=== PATIENT | female | born 2005 | race Caucasian/White ===

== ENCOUNTER 2024-02-04 21:31 | Emergency (ER) | payer OTHER ==
[~2024-02-04] VITALS: Ht 162.6 cm; Wt 66.4 kg
[~2024-02-04 21:31] MED LIST: CEPHALEXIN500 M1 PO
[2024-02-04 21:42] VITALS: TEMP 98.2
[2024-02-04] MEDS ORDERED: Cyclobenzaprine 10 MG TAB PO ONE (23:00)
[2024-02-04] MEDS ORDERED: Ketorolac 60 MG/2 ML VIAL IM ONE (23:00)
[2024-02-04 23:18] LABS: COLLECTION METHOD CLEAN CATCH
[2024-02-04 23:25] LABS: URINE APPEARANCE CLEAR (CLEAR/HAZY); URINE BLOOD 1+ (NEGATIVE); URINE COLOR YELLOW (YELLOW); URINE GLUCOSE NEGATIVE (NEGATIVE); URINE KETONE NEGATIVE (NEGATIVE); URINE NITRATE NEGATIVE (NEGATIVE); URINE PROTEIN(semi-quant) NEGATIVE (NEGATIVE); URINE UROBILINOGEN 0.2 E.U/dL (0.2-1.0)
[2024-02-05] MEDS ORDERED: FLEXERIL 1010 MG/TAB PO (00:01)
[2024-02-05 00:30] VITALS: BP 117/76; PULSE 87
== END 2024-02-05 00:30 | disposition home or self-care (01) ==
LOC: COL.ER 21:31
PROVIDERS: Nurse Practitioner Primary Care
DX: S39.012A Strain of muscle, fascia and tendon of lower back, initial encounter (principal); X50.1XXA Overexertion from prolonged static or awkward postures, initial encounter
CPT/HCPCS: J1885